=== PATIENT | male | born 1935 | race Caucasian/White ===

== ENCOUNTER 2016-12-02 15:04 | Emergency (ER) | payer OTHER ==
[~2016-12-02] VITALS: Ht 170.2 cm; Wt 62.5 kg
[2016-12-02] MEDS ORDERED: PAROXETINE HCL20 MG PO (15:43)
[2016-12-02] MEDS ORDERED: LORAZEPAM0.5 MG PO (15:45)
[2016-12-02] MEDS ORDERED: TRAZODONE HCL50 MG PO (15:49)
[2016-12-02 17:31] LABS: BASOPHIL COUNT 0.1 K/uL (0-0.1); EOSINOPHIL (%) 2.7 % (0-5); EOSINOPHIL COUNT 0.2 K/uL (0-0.3); HEMATOCRIT 39.9 % (38.0-50.0); IMMATURE GRANULOCYTE (%) 0.3 % (0.0-0.7); INSTRUMENT ABS NEUTROPHIL CT 3.7 K/uL; LYMPHOCYTE COUNT 2.5 K/uL (1.0-2.8); MCH 28.9 PG (29.0-34.0); MCHC 32.8 G/DL (30.0-36.0); MCV 87.9 FL (86-99); MEAN PLAT.VOLUME 11.2 uM^3 (9.0-12.4); MONOCYTE COUNT 0.6 K/uL (0-0.8); NEUTROPHIL (%) 52.4 % (45-76); NEUTROPHIL COUNT 3.7 K/uL (1.8-6.4); PLATELET COUNT 229 K/uL (156-360); RBC DIS.WIDTH-CV 15.9 % (11.8-14.6); RBC DIS.WIDTH-SD 51.1 % (39-53); RED BLOOD COUNT 4.54 M/uL (4.00-5.50)
[2016-12-02 17:43] LABS: CHLORIDE 104 mEq/L (99-109); POTASSIUM 4.5 mEq/L (3.7-5.4); SODIUM 138 mEq/L (136-147)
[2016-12-02 17:45] LABS: GLUCOSE 91 mg/dL (70-99)
[2016-12-02 17:46] LABS: ANION GAP 9 MEQ/L (2-14)
[2016-12-02 17:47] LABS: TOTAL BILIRUBIN 0.5 mg/dL (0.0-1.0)
[2016-12-02 17:48] LABS: SERUM ETHYL ALCOHOL < 10 mg/dL
[2016-12-02 17:49] LABS: ALKALINE PHOSPHATASE 58 IU/L (3-129); GFR ESTIMATE (CALCULATED) > 59 mL/min/
[2016-12-02 17:50] LABS: UREA NITROGEN (BUN) 14 mg/dL (9-23)
[2016-12-02 17:52] LABS: LIPASE 30 U/L (1.0-51.0)
[2016-12-02 17:53] LABS: TROP-I INTERPRETATION NEGATIVE; TROPONIN-I < 0.01 ng/mL (0.0-0.30)
[2016-12-02] MEDS ORDERED: BUSPAR5 MG PO (20:23)
[2016-12-02 21:03] VITALS: BP 121/70
== END 2016-12-02 21:08 | disposition home or self-care (01) ==
LOC: EME 15:04
PROVIDERS: Emergency Medicine
DX: F02.81 Dementia in other diseases classified elsewhere, unspecified severity, with behavioral disturbance (principal); H91.90 Unspecified hearing loss, unspecified ear
CPT/HCPCS: 80053; 83690; 84484; 85025; 90839; 93005; 99281; 99284; G0480

== ENCOUNTER 2017-01-11 10:17 | Emergency (ER) | payer OTHER ==
[~2017-01-11] VITALS: Ht 170.2 cm; Wt 52.4 kg
[~2017-01-11 10:17] MED LIST: BUSPAR5 MG PO; LORAZEPAM0.5 MG PO; PAROXETINE HCL20 MG PO; TRAZODONE HCL50 MG PO
[2017-01-11 11:26] LABS: EOSINOPHIL (%) 4.2 % (0-5); EOSINOPHIL COUNT 0.2 K/uL (0-0.3); HEMATOCRIT 36.8 % (38.0-50.0); IMMATURE GRANULOCYTE (%) 0.5 % (0.0-0.7); INSTRUMENT ABS NEUTROPHIL CT 2.5 K/uL; LYMPHOCYTE COUNT 2.3 K/uL (1.0-2.8); MCH 29.1 PG (29.0-34.0); MCHC 33.4 G/DL (30.0-36.0); MONOCYTE (%) 9.8 % (3-12); MONOCYTE COUNT 0.6 K/uL (0-0.8); NEUTROPHIL COUNT 2.5 K/uL (1.8-6.4); PLATELET COUNT 228 K/uL (156-360); RBC DIS.WIDTH-CV 15.8 % (11.8-14.6); RBC DIS.WIDTH-SD 49.3 % (39-53); RED BLOOD COUNT 4.23 M/uL (4.00-5.50); WHITE BLOOD COUNT 5.7 K/uL (4.1-10.2)
[2017-01-11 12:35] LABS: CHLORIDE 104 mEq/L (99-109); POTASSIUM 3.4 mEq/L (3.7-5.4); SODIUM 138 mEq/L (136-147)
[2017-01-11 12:37] LABS: GLUCOSE 116 mg/dL (70-99)
[2017-01-11 12:38] LABS: ANION GAP 8 MEQ/L (2-14)
[2017-01-11 12:39] LABS: TOTAL BILIRUBIN 0.9 mg/dL (0.0-1.0)
[2017-01-11 12:41] LABS: ALKALINE PHOSPHATASE 44 IU/L (3-129); GFR ESTIMATE (CALCULATED) > 59 mL/min/
[2017-01-11 12:42] LABS: UREA NITROGEN (BUN) 14 mg/dL (9-23)
[2017-01-11 13:20] VITALS: BP 111/52
== END 2017-01-11 13:21 | disposition home or self-care (01) ==
LOC: EME 10:17
PROVIDERS: Emergency Medicine
DX: R42 Dizziness and giddiness (principal); R03.1 Nonspecific low blood-pressure reading; H91.90 Unspecified hearing loss, unspecified ear; F03.90 Unspecified dementia, unspecified severity, without behavioral disturbance, psychotic disturbance, mood disturbance, and anxiety
CPT/HCPCS: 71010; 80053; 85025; 93005; 99281; 99285; J7030

== ENCOUNTER 2018-01-23 20:57 | Emergency (ER) | payer OTHER ==
[~2018-01-23] VITALS: Ht 170.2 cm; Wt 53.8 kg
[2018-01-23 22:50] VITALS: BP 138/76
== END 2018-01-23 23:14 | disposition home or self-care (01) ==
LOC: EME → EDBD 20:57 → EME 20:57
DX: F03.90 Unspecified dementia, unspecified severity, without behavioral disturbance, psychotic disturbance, mood disturbance, and anxiety (principal); H91.90 Unspecified hearing loss, unspecified ear; F32.9 Major depressive disorder, single episode, unspecified; F41.9 Anxiety disorder, unspecified
CPT/HCPCS: 99281; 99283